=== PATIENT | female | born 2000 | race Caucasian/White ===

== ENCOUNTER → 2022-08-24 | Emergency (ER) | payer BC, OTHER ==
[~2022-08-24] VITALS: Ht 157.5 cm; Wt 68.9 kg
[~2022-08-24] MED LIST: CEPH500C2 PO; CEPHALEXIN MONOHYDRATE 500 MG CAPSULE PO ONE; HYDR-3972 PO; IBUP-1953 PO; IV NS 0.9% 1,000 ML BAG IV ONE; LIDOCAINE HCL/MPF 1% 30 ML VIAL IJ ONE; LIDOCAINE HCL/PF 1% 30 ML VIAL TP ONE; MORPHINE SULFATE INJ 2 MG/ML DISP.SYRIN IV ONE; MORPHINE SULFATE INJ 4 MG/ML DISP.SYRIN ONE; ONDANSETRON HCL/PF 4 MG/2 ML VIAL IVP ONE; ONDANSETRON HCL/PF 4 MG/2 ML VIAL ONE; TDAP [DIPH/PERTUSSIS/TET] 0.5 ML VIAL IM ONE
--- NOTE | 2022-08-24 21:53 | NUR ---
IV ESTABLISHED RAC #20G S/L
--- NOTE | 2022-08-24 21:53 | NUR ---
DR. NAYELY REY AT PT'S BEDSIDE FOR WOUNDCARE, SUTURE TO NOSE
--- NOTE | 2022-08-24 23:05 | NUR ---
Patient discharged to home in stable condition. Written and verbal after care instructions given. Patient verbalizes understanding of instruction. IV removed. Catheter intact and site benign. Pressure and 4x4 applied to site. No bleeding noted. Pt ambulatory with a steady gait.
[2022-08-24 23:07] VITALS: BP 120/77
== END | disposition home or self-care (01) ==
LOC: ER 21:14
DX: S01.21XA Laceration without foreign body of nose, initial encounter (principal); W54.0XXA Bitten by dog, initial encounter; Y93.89 Activity, other specified; Y92.89 Other specified places as the place of occurrence of the external cause; Y99.8 Other external cause status
CPT/HCPCS: 99284; 96374; 96361; 96375; 12005; 90471; 90715; J3490 ×2; J2270; J2405; J7030; A6403